=== PATIENT | male | born 1955 | race American Indian/Alaskan Native ===

== ENCOUNTER 2020-11-28 00:03 | Emergency (ER) | payer OTHER ==
[2020-11-28] MEDS ORDERED: ASPIRIN 325 MG TAB PO ONE (01:20)
--- NOTE | 2020-11-28 01:57 | Emergency Department Report ---
ED Chest Pain HPI - General Chief Complaint: Chest Pain Stated Complaint: CHEST PAIN/LEFT SIDE NUMBNESS PUI?: No Time Seen by Provider: 11/28/20 01:54 Source: patient Mode of arrival: Ambulatory Limitations: No Limitations - History of Present Illness Initial Comments: Patient is a 65-year-old male that presents emergency room with complaints of left-sided chest pain that started at 5 PM yesterday. Patient states his pain going on for approximately 8 hours. Patient states that the pain is a 7 out of 10. Patient states the pain is worse with exertion and better with rest. Patient also complains of shortness of breath. Patient states shortness of breath is constant. Patient states his chest pain and shortness of breath are worsening. Patient states the chest pain is radiating to his left shoulder and is causing his to have left numbness. Patient denies fever and chills. Patient denies cough. Patient denies nausea and vomiting. Patient denies recent travel. Patient denies recent international travel. Pat ient denies exposure to the novel coronavirus. Patient denies sick contacts. Patient denies fever and chills. Patient denies cough. Patient denies diarrhea. Patient denies coming in contact with anybody with symptoms of the novel coronavirus. MD Complaint: chest pain -: Sudden Onset: during rest Pain Location: left chest Pain Radiation: LUE Severity: severe Severity scale (0 -10): 7 Quality: sharp Consistency: constant Improves With: rest Worsens With: exertion re: dyspnea. denies: nausea, vomting, diaphoresis, sense of impending doom Other Symptoms: denies: cough, fever, syncope, rash, acid taste in mouth, leg swelling, palpitations, burping Treatments Prior to Arrival: aspirin Aspirin use within the Past 7 Days: (1) Yes - Related Data On Oral Contraceptives: No Allergies Allergy/AdvReac Type Severity Reaction Status Date / Time No Known Allergies Allergy Verified 11/28/20 01:55 Heart Score - HEART Score History: Moderately suspicious EKG: Non-specific Age: 45-65 Risk factors: > 3 risk factors or hx of atherosclerotic disease Troponin: < normal limit HEART Score: 5 ED Review of Systems ROS: Stated complaint: CHEST PAIN/LEFT SIDE NUMBNESS Other details as noted in HPI Constitutional: denies: chills, fever Eyes: denies: eye pain, eye discharge, vision change ENT: denies: ear pain, throat pain Respiratory: see HPI, shortness of breath. denies: cough, wheezing Cardiovascular: as per HPI, chest pain. denies: palpitations Endocrine: no symptoms reported Gastrointestinal: denies: abdominal pain, nausea, diarrhea Genitourinary: denies: urgency, dysuria Musculoskeletal: denies: back pain, joint swelling, arthralgia Skin: denies: rash, lesions Neurological: denies: headache, weakness, paresthesias Psychiatric: denies: anxiety, depression Hematological/Lymphatic: denies: easy bleeding, easy bruising ED Past Medical Hx - Past Medical History Previous Medical History?: Yes Hx Hypertension: Yes Hx Diabetes: Yes Additional medical history: Chronic Back Pain. Spot on left lung - Surgical History Past Surgical History?: Yes Additional Surgical History: Right humerus - Family History Family history: no significant - Social History Smoking Status: Former Smoker Substance Use Type: None ED Physical Exam - General Limitations: No Limitations General appearance: alert, in no apparent distress - Head Head exam: Present: atraumatic, normocephalic - Eye Eye exam: Present: normal appearance - ENT ENT exam: Present: mucous membranes moist - Neck Neck exam: Present: normal inspection - Respiratory Respiratory exam: Present: normal lung sounds bilaterally. Absent: respiratory distress, wheezes, rales, chest wall tenderness - Cardiovascular Cardiovascular Exam: Present: regular rate, normal rhythm. Absent: systolic murmur, diastolic murmur, rubs, gallop - GI/Abdominal GI/Abdominal exam: Present: soft, normal bowel sounds - Rectal Rectal exam: Present: deferred - Extremities Exam Extremities exam: Present: normal inspection - Back Exam Back exam: Present: normal inspection - Neurological Exam Neurological exam: Present: alert, oriented X3 - Psychiatric Psychiatric exam: Present: normal affect, normal mood - Skin Skin exam: Present: warm, dry, intact, normal color. Absent: rash ED Course Vital Signs 11/28/20 01:15 Temperature 98.7 F Pulse Rate 72 Respiratory 16 Rate Blood Pressure 158/66 O2 Sat by Pulse 94 Oximetry - Reevaluation(s) Reevaluation #1: I discussed all results with patient. I discussed plan of care with patient. Patient disagrees with plan of care and admission. Patient was to be admitted to the hospital service however the patient states he does not want to stay. Patient refused admission. I discussed the risk with patient. Patient voiced understanding of the risk. Patient signed AMA form. Even though the patient is leaving the hospital AGAINST MEDICAL ADVICE, the patient will be given a formal discharge and follow-up instructions. 11/28/20 03:22 JANEL score - Janel Score Age > 65: (0) No Aspirin use within the Past 7 Days: (1) Yes 3 or more CAD Risk Factors: (1) Yes 2 or more Angina events in past 24 hrs: (1) Yes Known CAD with more than 50% Stenosis: (0) No Elevated Cardiac Markers: (0) No ST Deviation Greater than 0.5mm: (0) No JANEL Score: 3 ED Medical Decision Making - Lab Data Result diagrams: 11/28/20 01:38 11/28/20 01:38 - EKG Data -: EKG Interpreted by Me EKG shows normal: sinus rhythm, axis, intervals, QRS complexes, ST-T waves Rate: normal - EKG Data Interpretation: other (Right bundle branch block) - Radiology Data Radiology results: report reviewed, image reviewed interpreted by me: Chest x-ray: No pneumonia, no pneumothorax, no foreign body, no osseous findings, no acute findings CHEST 1 VIEW 11/28/2020 1:10 AM INDICATION / CLINICAL INFORMATION: Chest Pain. COMPARISON: None available. FINDINGS: SUPPORT DEVICES: None. HEART / MEDIASTINUM: No significant abnormality. LUNGS / PLEURA: No significant pulmonary or pleural abnormality. No pneum othorax. ADDITIONAL FINDINGS: No significant additional findings. IMPRESSION: No acute abnormality. - Medical Decision Making Patient is a 65-year-old male who presents emergency room with complaints of chest pain. Patient chest pain started at 5 PM. Patient had labs done which were essentially unremarkable. Patient's initial cardiac enzymes were negative. Patient had a chest x-ray which was negative for acute finding. Patient's EKG done and was negative for acute findings showed a sinus rhythm with right bundle branch block and no changes to the ST segment. Patient had no acute findings on his EKG. I personally reviewed the EKG and the chest x-ray. Patient has a history of diabetes and hypertension. Patient's heart score and JANEL score elevated. I recommend admission to the hospital service to rule out ACS and the patient refused. I discussed the risk with patient. Patient voiced understanding of the risk. Patient is of sound mind body to make his own decisi ons. Patient is alert and oriented x4. Patient signed AMA form. Patient signed out AMA however the patient was still given a discharge instructions and follow-up instructions and referral to a hrbp. - Differential Diagnosis ACS, chest pain, hypertension, electrolyte imbalance, diabetes, Critical care attestation.: If time is entered above; I have spent that time in minutes in the direct care of this critically ill patient, excluding procedure time. 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 Patient to follow-up wit h hrbp in 2 to 3 days. Patient to rest. Patient to increase water. Patient to avoid strenuous exercise or heavy lifting until cleared by hrbp. Patient to continue aspirin daily. Patient to take Tylenol or ibuprofen as needed for pain. Patient to continue all other medications. Patient to return to the ER if condition worsens, changes or new symptoms arise. Referrals: PRIMARY CARE, [Primary Care Provider] - 2-3 Days DEEP BOLANOS MD [Staff Physician] - 2-3 Days Time of Disposition: 03:26
[2020-11-28 02:14] LABS: Basophils # (Auto) 0.1 K/mm3 (0.0-0.1); Eosinophils # (Auto) 0.1 K/mm3 (0.0-0.4); Eosinophils % (Auto) 2.4 % (0.0-4.3); Hematocrit 41.9 % (35.5-45.6); Hemoglobin 13.8 gm/dl (11.8-15.2); Lymphocytes # (Auto) 2.2 K/mm3 (1.2-5.4); Lymphocytes % (Auto) 39.5 % (13.4-35.0); Mean Corpuscular HGB Conc 33 % (32-34); Mean Corpuscular Volume 84 fl (84-94); Monocytes # (Auto) 0.6 K/mm3 (0.0-0.8); Monocytes % (Auto) 10.4 % (0.0-7.3); Platelet Count 224 K/mm3 (140-440); Red Blood Count 5.02 M/mm3 (3.65-5.03); Red Cell Distribution Width 13.8 % (13.2-15.2)
[2020-11-28 02:16] LABS: BUN/Creatinine Ratio 11; Blood Urea Nitrogen 12 mg/dL (9-20); Calcium 9.4 mg/dL (8.4-10.2); Hemolysis Index 7
--- NOTE | 2020-11-28 02:17 | XRay Report ---
CHEST 1 VIEW 11/28/2020 1:10 AM INDICATION / CLINICAL INFORMATION: Chest Pain. COMPARISON: None available. FINDINGS: SUPPORT DEVICES: None. HEART / MEDIASTINUM: No significant abnormality. LUNGS / PLEURA: No significant pulmonary or pleural abnormality. No pneumothorax. ADDITIONAL FINDINGS: No significant additional findings. IMPRESSION: No acute abnormality. Signer Name: Bob June MD Signed: 11/28/2020 2:13 AM Workstation Name: [id number]
[2020-11-28 03:37] VITALS: BP 143/82
== END 2020-11-28 03:45 | disposition left against medical advice (07) ==
LOC: ED 00:03
DX: R07.89 Other chest pain (principal); E11.9 Type 2 diabetes mellitus without complications; I10 Essential (primary) hypertension; Z98.890 Other specified postprocedural states; Z87.891 Personal history of nicotine dependence
CPT/HCPCS: 36415; 71045; 80048; 84484; 85025; 93005